=== PATIENT | female | born 1995 | race Caucasian/White ===

== ENCOUNTER 2017-08-09 13:42 | Emergency (ER) | payer OTHER ==
[~2017-08-09] VITALS: Ht 157.5 cm; Wt 58.1 kg
[~2017-08-09 13:42] MED LIST: AZITHROMYCIN250 MG PO; ULTRAM50 MG PO
[2017-08-09 14:30] VITALS: BP 113/81
== END 2017-08-09 14:30 | disposition home or self-care (01) ==
LOC: EME 13:42
DX: F41.1 Generalized anxiety disorder (principal); J45.909 Unspecified asthma, uncomplicated; Z88.8 Allergy status to other drugs, medicaments and biological substances
CPT/HCPCS: 99281; 99283

== ENCOUNTER 2017-09-12 16:13 | Emergency (ER) | payer OTHER ==
[~2017-09-12] VITALS: Ht 154.9 cm; Wt 55.9 kg
[2017-09-12] MEDS ORDERED: NAPROSYN500 MG PO (16:23)
[2017-09-12 16:56] VITALS: BP 122/62
[2017-09-13] MEDS ORDERED: FLEXERIL10 MG PO (20:12)
== END 2017-09-12 16:58 | disposition home or self-care (01) ==
LOC: EME 16:13
DX: R51 Headache (principal); V43.52XA Car driver injured in collision with other type car in traffic accident, initial encounter; Y92.410 Unspecified street and highway as the place of occurrence of the external cause
CPT/HCPCS: 99281; 99283

== ENCOUNTER 2017-09-13 19:20 | Emergency (ER) | payer OTHER ==
[~2017-09-13] VITALS: Ht 154.9 cm; Wt 58.7 kg
[~2017-09-13 19:20] MED LIST changes: +NAPROSYN500 MG PO
[2017-09-13 19:35] VITALS: BP 124/82
[2017-09-13] MEDS ORDERED: FLEXERIL10 MG PO (20:12)
== END 2017-09-13 20:43 | disposition home or self-care (01) ==
LOC: EME 19:20
DX: S13.4XXA Sprain of ligaments of cervical spine, initial encounter (principal); V49.40XA Driver injured in collision with unspecified motor vehicles in traffic accident, initial encounter; Y92.410 Unspecified street and highway as the place of occurrence of the external cause; J45.909 Unspecified asthma, uncomplicated; F41.9 Anxiety disorder, unspecified; F32.9 Major depressive disorder, single episode, unspecified; Z88.8 Allergy status to other drugs, medicaments and biological substances
CPT/HCPCS: 99281; 99284